=== PATIENT | male | born 1985 | race African-American/Black ===

== ENCOUNTER 2016-08-06 18:29 | Emergency (ER) | payer SELFPAY ==
[2016-08-06 18:36] VITALS: BP 166/107; BMI 37.6
[2016-08-06] MEDS ORDERED: NORFLEX INJ IM ONE (19:40)
[2016-08-06] MEDS ORDERED: TORADOL 60 MG VIAL IM ONE (19:40)
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
[2016-08-06] MEDS ORDERED: TORADOL 60 MG VIAL ONE (19:46)
[2016-08-06] MEDS ORDERED: NORFLEX INJ ONE (19:46)
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
== END 2016-08-06 22:44 | disposition home or self-care (01) ==
LOC: ER 18:40
DX: S20.211A Contusion of right front wall of thorax, initial encounter (principal); R51 Headache; S39.012A Strain of muscle, fascia and tendon of lower back, initial encounter; V87.7XXA Person injured in collision between other specified motor vehicles (traffic), initial encounter; Y92.89 Other specified places as the place of occurrence of the external cause
CPT/HCPCS: 70450; 71111; 72110; 96365; 96372; 99283; J1885; J2360

== ENCOUNTER 2016-10-15 04:58 | Emergency (ER) | payer SELFPAY ==
[2016-10-15 05:04] VITALS: BMI 39.5
[2016-10-15] MEDS ORDERED: CATAPRES TAB 0.2 MG ONE (05:12)
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
[2016-10-15] MEDS ORDERED: BACTRIM DS TAB PO ONE ×2 (06:01→06:07)
[2016-10-15] MEDS ORDERED: TORADOL TAB PO ONE ×2 (06:01→06:07)
[2016-10-15 06:26] VITALS: BP 170/99
== END 2016-10-15 06:14 | disposition home or self-care (01) ==
LOC: ER 04:58
DX: L02.211 Cutaneous abscess of abdominal wall (principal); L03.818 Cellulitis of other sites; I10 Essential (primary) hypertension
CPT/HCPCS: 99282

== ENCOUNTER 2016-12-08 20:21 | Emergency (ER) | payer OTHER ==
[2016-12-08 20:29] VITALS: BMI 38.0
[2016-12-08] MEDS ORDERED: TORADOL 60 MG VIAL IM ONE (21:04)
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
[2016-12-08] MEDS ORDERED: TORADOL 60 MG VIAL ONE (21:06)
[2016-12-08] MEDS ORDERED: ZESTRIL TAB 40 MG PO ONE (21:33)
[2016-12-08 22:47] VITALS: BP 170/108
== END 2016-12-08 22:48 | disposition home or self-care (01) ==
LOC: ER 20:35
DX: J06.9 Acute upper respiratory infection, unspecified (principal); B97.89 Other viral agents as the cause of diseases classified elsewhere
CPT/HCPCS: 96372; 99282; J1885

== ENCOUNTER 2017-01-03 12:36 | Emergency (ER) | payer OTHER ==
[2017-01-03 12:44] VITALS: BP 183/114; BMI 37.8
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
[2017-01-03] MEDS ORDERED: TORADOL 60 MG VIAL IM ONE (14:05)
[2017-01-03] MEDS ORDERED: TORADOL 60 MG VIAL ONE (14:06)
== END 2017-01-03 14:26 | disposition home or self-care (01) ==
LOC: ER 12:36
DX: J06.9 Acute upper respiratory infection, unspecified (principal); K08.89 Other specified disorders of teeth and supporting structures
CPT/HCPCS: 96372; 99282; J1885

== ENCOUNTER 2017-02-14 15:18 | Emergency (ER) | payer OTHER ==
[2017-02-14 15:28] VITALS: BMI 37.2
[2017-02-14] MEDS ORDERED: CATAPRES TAB 0.2 MG PO ONE (19:53)
--- NOTE | 2017-02-14 19:55 | DR.GENAD ---
HPI - PCP Primary Care Physician: nfd - Complaint/Symptoms Chief Complaint Doctors Comments: Patient is complaining of nausea, vomiting, diarrhea, dizziness and body aches with episode of nose bleed. He states he has a problem with jonathan blood pressure but has been out of his blood pressure medicines for 2-4 weeks. States he has been taking his girl friend's Lisinopril 40mg but stopped after they told him their medicine may be different. States he has been having blurred vision but denies chest pain or any recent trauma. States he was told by his ex-girl friend that she had chylmadia and he needed to be check. He denies hematuria, melena or diarrhea. Chief Complaint:: possible std, n/v/d, body sore. - Nurses notes reviewed Nurses Notes Review: Yes - Source History Provided: Patient - Mode of Arrival Mode of Arrival: Ambulatory - Timing Onset of Chief Complaint: 02/12/17 Came on: Gradually - Duration Duration: Constant How lon Duration: Weeks - Location Location: body aches - Severity Severity: Mild - Modifying Factors Worsens:: nothing Improves:: nothing PMH - PMH Past Medical History: Yes Past Medical History: Hypertension Past Surgical History: Yes Surgical History: Cholecystectomy, Ortho Surgery - Family History History of Family Medical Conditions: Yes Family Medical History: Diabetes Mellitus, Cancer, [place], Coronary Artery Disease, Hypertension - Social History Type of Tobacco Use: None Alcohol Use: None Do you use any recreational Drugs:: No Lives With: Family Lives Where: Home - infectious screening In the last 2 months have you had wt loss of >10#?: NO Have you had fever, night sweats or hemotysis?: No Have you traveled outside the country in the last 6 months?: No Isolation: Standard ROS - Review of Systems Constitutional: No Symptoms Reported, Weakness, Loss of Appetite. negative: See HPI, Chills, Diaphoresis, Fever, Malaise, Irritable, Fatigue, Other Eyes: No Symptoms Reported ENTM: No Symptoms Reported, Nose Discharge (purulent nasal discharge), Nose Congestion Respiratoy: No Symptoms Reported, Non-Productive Cough Cardiovascular: No Symptoms Reported Gastrointestinal/Abdominal: No Symptoms Reported. negative: See HPI, Abdominal Pain, Constipation, Diarrhea, Nausea, Vomiting, Food Intolerance, Other Genitourinary: No Symptoms Reported Neurological: No Symptoms Reported. negative: See HPI, Anxiety, Depressed, Emotional Problems, Headache, Numbness, Paresthesia, Pre-existing Deficit, Seizure, Tingling, Tremors, Weakness, Dizziness, Problems Walking, Speech Problem, Other Musculoskeletal: No Symptoms Reported Integumentary: No Symptoms Reported Hematologic/Lymphatic: No Symptoms Reported Endocrine: No Symptoms Reported Psychiatric: No Symptoms Reported. negative: See HPI, Anxiety, Depression, Hallucinations, Excessive crying, Suicidal, Other PE - Vital Signs Vitals: Temperature 99.9 F Pulse Rate [Apical] 91 Pulse Rate 102 Respiratory Rate 20 Blood Pressure [Left Arm] 130/80 Blood Pressure 185/121 O2 Sat by Pulse Oximetry 99 - General Limitations: No Limitations General Appearance: Alert, In Distress (slight) - Head Head Exam: Normal Inspection, Atraumatic, Normocephalic - Eyes Eye exam: Normal Appearance, PERRL, EOMI. negative: Scleral Icterus, Conjunctival Injection, Nystagmus, Miosis, Mydrasis, Periorbital Swelling, Periorbital Tenderness, Other - ENT ENT Exam: Normal Exam, Normal Oropharynx, Normal External Ear Exam, Mucous Membranes Moist, TM's Normal Bilaterally External Ear Exam: Normal External Inspection TM/Canal Exam: Bilateral Normal Nose Exam: Normal Nose Exam Mouth Exam: Normal Inspection Throat Exam: Normal Inspection - Neck Neck Exam: Normal Inspection, Full ROM, Trachea Midline - Chest Chest Inspection: Normal Inspection, Symmetric Chest Wall Rise. negative: Tenderness, Rash, Abscess, Other - Respiratory Respiratory Exam: Normal Lung Sounds Bilat, Accessory Muscle Use Respiratory Exam: Bilateral Clear to Auscultation - Cardiovascular Cardiovascular Exam: Regular Rate, Normal Rhythm, Normal Heart Sounds - Abdominal Exam Abdominal Exam: Normal Inspection, Normal Bowel Sounds, Soft, Trauma, Incision Abdominal Tenderness: negative: RUQ, RLQ, LUQ, LLQ, Epigastrium, Suprapubic, Diffuse, Mild, Moderate, Severe, Other - Extremities Extremities Exam: Normal Inspection, Full ROM, Normal Capillary Refill. negative: Tenderness, Edema, Joint Swelling, Calf Tenderness, Other - Back Back Exam: Normal Inspection, Full ROM - Neurologic Neurological Exam: Alert, Oriented X3, CN II-XII Intact, Normal Gait, Reflexes Normal - Psychiatric Psychiatric Exam: Normal Affect, Normal Mood - Skin Skin Exam: Warm, Dry, Intact, Normal Color, Rash, Cyanosis ROR - Labs Reviewed Laboratory Results Reviewed?: Yes (all labs and x-ray results reviewed and discussed with patient.) Result Diagrams: 02/14/17 20:05 02/14/17 20:05 Laboratory: WBC 19.1 X10^3/uL (3.6-10.0) H 02/14/17 20:05 RBC 5.96 X10^6/uL (4.7-6.0) 02/14/17 20:05 Hgb 13.5 g/dL (13.5-18.0) 02/14/17 20:05 Hct 41.9 % (42.0-54.0) L 02/14/17 20:05 MCV 70.3 fL (80.0-100.0) L 02/14/17 20:05 MCH 22.7 pg (27.0-34.0) L 02/14/17 20:05 MCHC 32.3 g/dL (33.0-35.0) L 02/14/17 20:05 RDW 15.0 % (11.6-16.5) 02/14/17 20:05 Plt Count 214 X10^3/uL (150.0-450.0) 02/14/17 20:05 Plt Count Comment Adequate (ADEQUATE) 02/14/17 20:05 MPV 8.2 fL (7.4-11.0) 02/14/17 20:05 Neut % 82.3 % (42.0-75.0) H 02/14/17 20:05 Lymph % 6.4 % (21.0-51.0) L 02/14/17 20:05 [place] % 10.6 % (0.0-13.0) 02/14/17 20:05 Eos % 0.5 % (0.9-2.9) L 02/14/17 20:05 Baso % 0.2 % (0.2-1.0) 02/14/17 20:05 Neut # 15.7 x10^3/uL (2.2-4.8) H 02/14/17 20:05 Lymph # 1.2 X10^3/uL (1.3-2.9) L 02/14/17 20:05 [place] # 2.0 x10^3/uL (0.3-0.8) H 02/14/17 20:05 Eos # 0.1 x10^3/uL (0.0-0.2) 02/14/17 20:05 Baso # 0.0 X10^3/uL (0.0-0.1) 02/14/17 20:05 Absolute Nucleated RBC 0.0 /100WBC 02/14/17 20:05 Plt Morphology Comment Normal (NORMAL) 02/14/17 20:05 RBC Morphology Abnormal (NORMAL) 02/14/17 20:05 Hypochromasia 1+ A 02/14/17 20:05 INR Target Range - 02/14/17 20:05 INR 1.10 (0.8-1.3) 02/14/17 20:05 PTT 27.3 SECONDS (22.9-36.5) 02/14/17 20:05 PTT Comment - 02/14/17 20:05 Sodium 139 mmol/L (136-145) 02/14/17 20:05 Corrected Sodium TNP 02/14/17 20:05 Potassium 3.5 mmol/L (3.5-5.1) 02/14/17 20:05 Chloride 103 mmol/L (98-107) 02/14/17 20:05 Carbon Dioxide 26.2 mmol/L (21-32) 02/14/17 20:05 BUN 9 mg/dL (7-18) 02/14/17 20:05 Creatinine 1.10 mg/dL (0.70-1.30) 02/14/17 20:05 Est GFR (MDRD) Af Amer > 60 (>60) 02/14/17 20:05 Est GFR (MDRD) Non-Af > 60 (>60) 02/14/17 20:05 Glucose 99 mg/dL (65-99) 02/14/17 20:05 Calcium 8.7 mg/dL (8.5-10.1) 02/14/17 20:05 Corrected Calcium TNP 02/14/17 20:05 Magnesium 1.7 mg/dL (1.7-2.9) 02/14/17 20:05 Total Bilirubin 0.50 mg/dL (0.2-1.0) 02/14/17 20:05 AST 14 Units/L (15-37) L 02/14/17 20:05 ALT 29 Units/L (12-78) 02/14/17 20:05 Alkaline Phosphatase 92 Units/L (46-116) 02/14/17 20:05 Creatine Kinase 66 Units/L (39-308) 02/14/17 20:05 CK-MB (CK-2) < 1.0 ng/mL (0-4.0) 02/14/17 20:05 CK/CKMB % Calc 1.5 % (<4) 02/14/17 20: Troponin I < 0.02 ng/mL (0-1.5) 02/14/17 20:05 Total Protein 7.4 g/dL (6.4-8.2) 02/14/17 20: Albumin 3.4 g/dL (3.4-5.0) 02/14/17 20: Globulin 4.0 g/dL (2.5-4.5) 02/14/17 20:05 Albumin/Globulin Ratio 0.9 Ratio (1.1-2.1) L 02/14/17 20:05 Specimen Type Clean catch urine 02/14/17 20:25 Urine Color [place] (YELLOW) 02/14/17 20:25 Urine Appearance Clear (CLEAR) 02/14/17 20: Urine pH 5.0 (5.0 - 8.0) 02/14/17 20:25 Ur Specific [place] 1.020 (1.000-1.030) 02/14/17 20:25 Urine Protein 3+ (NEGATIVE) 02/14/17 20:25 Urine Glucose (UA) Negative (NEGATIVE) 02/14/17 20:25 Urine Ketones Negative (NEGATIVE) 02/14/17 20: Urine Occult Blood 1+ (NEGATIVE) 02/14/17 20:25 Urine Nitrite Negative (NEGATIVE) 02/14/17 20:25 Urine Bilirubin Negative (NEGATIVE) 02/14/17 20:25 Urine Urobilinogen 2+ (NORMAL) 02/14/17 20:25 Ur Leukocyte Esterase 1+ (NEGATIVE) 02/14/17 20:25 Urine RBC 0 - 4 /HPF (NEGATIVE) 02/14/17 20:25 Urine WBC 0 - 3 /HPF (NEGATIVE) 02/14/17 20:25 Ur Squamous Epith Cells Few /HPF (NEGATIVE) 02/14/17 20:25 Amorphous Sediment 1+ /HPF (NEGATIVE) 02/14/17 20:25 Urine Bacteria Trace /HPF (NEGATIVE) 02/14/17 20:25 Hyaline Casts Rare /LPF (NEGATIVE) 02/14/17 20:25 Urine Mucus Moderate /HPF (NEGATIVE) 02/14/17 20:25 Ur Culture Indicated? No/not indicated 02/14/17 20:25 Urine Opiates Screen Negative (NEG=<300) 02/14/17 20:25 Urine Methadone Screen Negative (NEG=<300) 02/14/17 20:25 Ur Barbiturates Screen Negative (NEG=<200) 02/14/17 20:25 Ur Phencyclidine Scrn Negative (NEG=<25) 02/14/17 20:25 Ur Amphetamines Screen Negative (NEG=<1000) 02/14/17 20:25 U Benzodiazepines Scrn Negative (NEG=<200) 02/14/17 20:25 Urine Cocaine Screen Negative (NEG=<300) 02/14/17 20:25 U Marijuana (THC) Screen Negative (NEG=<50) 02/14/17 20:25 - XRAY XRAY Interpreted by: Radiologist (CXR: no acute cardiopulmonary changes) - EKG Rate: 90 [place]: Normal Rhythm: NSR Block: None Hypertrophy: None ST: Normal, Nonsp - Diagnosis Discharge Problem: Accelerated hypertension, Sinusitis, acute maxillary - Discharge Plan Disposition: HOME, SELF-CARE Condition: Stable Prescriptions: Amoxicillin 500 mg PO TID #30 cap Lisinopril & Hydrochlorothiazi [ZESTORETIC 10/12.5 MG *] 1 tab PO DAILY #30 tab Loratadine [Claritin] 10 mg PO DAILY #30 tab - Follow ups/Referrals Follow ups/Referrals: NFD,None [Primary Care Provider] - 3 days Cristino Philippe [STAFF PHYSICIAN] - 3 days - Instructions Instructions: Hypertension, [id number], Sinusitis, Adult, [id number]
[2017-02-14] MEDS ORDERED: CATAPRES TAB 0.2 MG ONE ×2 (20:15→20:22)
[2017-02-14 20:33] LABS: BILIRUBIN,URINE NEGATIVE (NEGATIVE); BLOOD/HEMOGLOBIN,URINE 1+ (NEGATIVE); GLUCOSE, URINE NEGATIVE (NEGATIVE); KETONES,URINE NEGATIVE (NEGATIVE); LEUKOCYTE ESTERASE ,URINE 1+ (NEGATIVE); NITRITES,URINE NEGATIVE (NEGATIVE); PROTEIN,URINE 3+ (NEGATIVE); UROBILINOGEN,URINE 2+ (NORMAL)
[2017-02-14 20:35] LABS: BASOPHILS % (AUTO) 0.2 % (0.2-1.0); EOSINOPHILS # (AUTO) 0.1 x10^3/uL (0.0-0.2); EOSINOPHILS % (AUTO) 0.5 % (0.9-2.9); HEMATOCRIT 41.9 % (42.0-54.0); HEMOGLOBIN 13.5 g/dL (13.5-18.0); LYMPHOCYTES # (AUTO) 1.2 X10^3/uL (1.3-2.9); LYMPHOCYTES % (AUTO) 6.4 % (21.0-51.0); MEAN CORPUSCULAR HEMOGLOBIN 22.7 pg (27.0-34.0); MEAN CORPUSCULAR HGB CONC 32.3 g/dL (33.0-35.0); MEAN CORPUSCULAR VOLUME 70.3 fL (80.0-100.0); MEAN PLATELET VOLUME 8.2 fL (7.4-11.0); MONOCYTES % (AUTO) 10.6 % (0.0-13.0); NEUTROPHILS # (AUTO) 15.7 x10^3/uL (2.2-4.8); NEUTROPHILS % (AUTO) 82.3 % (42.0-75.0); PLATELET COUNT 214 X10^3/uL (150.0-450.0); RED BLOOD COUNT 5.96 X10^6/uL (4.7-6.0); WHITE BLOOD COUNT 19.1 X10^3/uL (3.6-10.0)
[2017-02-14 20:53] LABS: HYPOCHROMASIA 1+; PLATELET MORPHOLOGY COMMENT NORMAL (NORMAL)
[2017-02-14 20:54] LABS: BLOOD UREA NITROGEN 9 mg/dL (7-18); CALCIUM 8.7 mg/dL (8.5-10.1); CARBON DIOXIDE 26.2 mmol/L (21-32); CHLORIDE 103 mmol/L (98-107); SODIUM 139 mmol/L (136-145); TROPONIN I < 0.02 ng/mL (0-1.5); eGFR BLACK RACES > 60 (>60); eGFR NON BLACK RACES > 60 (>60)
[2017-02-14 20:58] LABS: ALANINE AMINOTRANSFERASE 29 Units/L (12-78); ALBUMIN 3.4 g/dL (3.4-5.0); ALKALINE PHOSPHATASE 92 Units/L (46-116); ASPARTATE AMINO TRANSFERASE 14 Units/L (15-37); CKMB % 1.5 % (<4); CREATINE KINASE 66 Units/L (39-308); CREATINE KINASE MB < 1.0 ng/mL (0-4.0); MAGNESIUM 1.7 mg/dL (1.7-2.9); TOTAL PROTEIN 7.4 g/dL (6.4-8.2)
[2017-02-14 21:01] LABS: APPEARANCE,URINE CLEAR (CLEAR); COLOR,URINE AMBER (YELLOW)
[2017-02-14 21:22] LABS: RBC,URINE 0 - 4 /HPF (NEGATIVE); SQUAMOUS EPITHELIAL CELL,UR FEW /HPF (NEGATIVE)
[2017-02-14 21:23] LABS: AMORPHOUS SEDIMENT,UR 1+ /HPF (NEGATIVE); BACTERIA,URINE TRACE /HPF (NEGATIVE); HYALINE CASTS, URINE RARE /LPF (NEGATIVE); MUCUS,URINE MODERATE /HPF (NEGATIVE)
--- NOTE | 2017-02-14 21:26 | RAD ---
Chest, one-view Indication: Chest pain Comparison: 08/06/2016 Findings: Heart size is normal. No focal consolidation, significant effusion or pneumothorax is ident ified. Osseous thorax is unremarkable. Impression: No acute cardiopulmonary abnormality. Reported By:
[2017-02-14 21:55] VITALS: BP 130/80
[2017-02-14] MEDS ORDERED: ROCEPHIN VIAL 1 GM IM ONE (21:57)
[2017-02-14] MEDS ORDERED: BENADRYL CAP 50 MG PO ONE (21:57)
[2017-02-14] MEDS ORDERED: XYLOCAINE 1 % (PLAIN) ONE (21:59)
[2017-02-14] MEDS ORDERED: ROCEPHIN VIAL 1 GM ONE (22:00)
[2017-02-14] MEDS ORDERED: BENADRYL CAP/TAB 25 MG PO ONE (22:00)
== END 2017-02-14 22:16 | disposition home or self-care (01) ==
LOC: ER 15:31
DX: J01.80 Other acute sinusitis (principal); I10 Essential (primary) hypertension
CPT/HCPCS: 36415; 71045; 80053; 80307; 81001; 82550; 82553; 83735; 84484; 85025; 85610; 85730; 93005; 93010; 96372; 99283; G0434; J0696; J2001

== ENCOUNTER 2017-05-22 09:19 | Emergency (ER) | payer OTHER ==
[2017-05-22 09:24] VITALS: BP 180/106; BMI 38.7
[2017-05-22] MEDS ORDERED: TORADOL 30 MG VIAL IVP ONE (11:59)
[2017-05-22] MEDS ORDERED: TORADOL 30 MG VIAL ONE (12:01)
--- NOTE | 2017-05-22 12:02 | DR.EXTPAIN ---
HPI - Time seen Time seen: 11:50 - PCP Primary Care Physician: NFD - Complaint/Symptoms Chief Complaint:: PT C/O KNOT BEHIND RT EAR. PT STATES HE WOKE UP THURSDAY AND HE NOTICE THIS KNOT. PT STATES HE HAS HAD NECK SWELLING WITH PAIN. PT STATES HE HAS BEEN TAKING ANTIBIOTICS FOR 3 DAYS. Self Treatment fo Chief Complaint: warm compresses - Nurses notes reviewed Nurses Notes Review: Yes - Source History Provided: Patient - Mode of arrival Mode of Arrival: Ambulatory - Timing Onset of Chief Complaint: 05/17/17 - Context History of: None - Associated signs and symptoms Associated Signs and Symptoms: Pain, Other (pt also c/o rt sided tooth pain) PMH - PMH Past Medical History: Yes Past Medical History: Hypertension Past Surgical History: Yes Surgical History: Abdominal Surgery, Cholecystectomy, Ortho Surgery Past Surgical History Comment: HERNIA REPAIR - Family History History of Family Medical Conditions: Yes Family Medical History: Diabetes Mellitus, Cancer, [place], Coronary Artery Disease, Hypertension - Social History Does patient currently use any type of tobacco product: Yes Have you used tobacco products in the last 12 months: Yes Type of Tobacco Use: Cigarettes Does any household member use tobacco: Yes Alcohol Use: None Do you use any recreational Drugs:: No Lives With: Family Lives Where: Home - infectious screening In the last 2 months have you had wt loss of >10#?: NO Have you had fever, night sweats or hemotysis?: No Have you traveled outside the country in the last 6 months?: No Isolation: Standard ROS - Review of Systems ENTM: Ear Pain, Mouth Pain, Throat Pain Respiratoy: No Symptoms Reported Cardiovascular: No Symptoms Reported Gastrointestinal/Abdominal: No Symptoms Reported Genitourinary: No Symptoms Reported Neurological: No Symptoms Reported Musculoskeletal: No Symptoms Reported Integumentary: No Symptoms Reported, See HPI, Lesions Hematologic/Lymphatic: No Symptoms Reported Endocrine: No Symptoms Reported Psychiatric: No Symptoms Reported All Other Systems: Reviewed and Negative PE - Vital Signs Vitals: Temperature 98.5 F Pulse Rate 83 Respiratory Rate 18 Blood Pressure [Left Arm] 130/80 Blood Pressure 180/106 O2 Sat by Pulse Oximetry 99 - General Limitations: No Limitations General Appearance: Alert, In No Apparent Distress - Eyes Eye exam: Normal Appearance - ENT ENT Exam: Normal Oropharynx, Normal External Ear Exam, TM's Normal Bilaterally , Other (overall good oral hygiene) - Neck Neck Exam: Trachea Midline, Tenderness, Lymphadenopathy, Other (palpable tenderness and firmness rt side of neck down to clavicle. ) - Chest Chest Inspection: Normal Inspection - Respiratory Respiratory Exam: Normal Lung Sounds Bilat Respiratory Exam: Bilateral Clear to Auscultation - Cardiovascular Cardiovascular Exam: Regular Rate, Normal Rhythm - Abdominal Exam Abdominal Exam: Normal Inspection, Normal Bowel Sounds, Soft. negative: Tenderness - Extremities Extremities Exam: Normal Inspection - Upper Extremities Shoulder Exam: Normal Inspection ROR - XRAY XRAY Interpreted by: Radiologist XRAY Findings: CT w/lymphadenopathy (likely reactive) rt side neck, 1.8 x 2.1 cm subc mass - Diagnosis Discharge Problem: Cutaneous abscess - Discharge Plan Disposition: HOME, SELF-CARE Condition: Stable Prescriptions: Ketorolac Tromethamine 10 mg PO TID #12 tablet - Follow ups/Referrals Follow ups/Referrals: NFD,None [Primary Care Provider] - 3 days - Instructions Instructions: Skin Abscess, [id number] Additional Notes - Additional Notes Additional Notes: CT rpt sig for subcut mass behind rt ear, no definite neck mass seen on CT. Pt reexamined, lesion behind ear not as tender as on 1st exam. Pt sleeping comfortably. Will give bicillin 1.2mU IM in ER, opt to continue abx already gotten. F/U PCP. I&D not performed in ER.
[2017-05-22] MEDS ORDERED: NS 100 ML IV 100 ML IV ONE (12:10)
--- NOTE | 2017-05-22 12:44 | CT ---
CT neck soft tissue with contrast. Indication: Right-sided neck mass Comparison: None Technique: CT images of the neck soft tissues were obtained with IV contrast per protocol. Automatic exposure control was utilized. Abnormality was marked with a skin marker. Findings: There is right-sided retroauricular soft tissue prominence measuring 2.1 x 1.8 cm in axial dimension on image 46, series 4, adjacent to the skin marker. Several mildly prominent right-sided cervical aide in lymph nodes and a mildly enlarged right intraparotid lymph node noted. No bulky adenopathy. The ju gular veins and carotid arteries are grossly patent. The visualized nasopharynx, oropharynx, hypopharynx, larynx, and infraglottic airway demonstrate no s ignificant abnormality. The thyroid is unremarkable. The lower brain is unremarkable for technique. No acute skeletal abnormality. The visualized upper efren ngs are clear. Impression: 1. Right-sided retroauricular skin/subcutaneous soft tissue lesion measuring 2.1 x 1.8 cm, possibly c omplex collection or mass. 2. [place] right-sided cervical chain and intra parotid lymph nodes, likely reactive. Reported By:
[2017-05-22] MEDS ORDERED: BICILLIN L-A IM ONE ×2 (13:00→13:08)
== END 2017-05-22 13:30 | disposition home or self-care (01) ==
LOC: ER 09:31
DX: L02.91 Cutaneous abscess, unspecified (principal)
CPT/HCPCS: 70491; 96365; 96372; 96374; 99282; 99283; A4222; J0570; J1885